=== PATIENT | male | born 1945 | race Caucasian/White ===

== ENCOUNTER → 2019-04-03 | Outpatient (CLI) | payer OTHER ==
[~2019-04-03] MED LIST: ASPIR 8181 MG PO; COZAAR 50 MG TA50 M2 PO; CRESTOR10 MG PO; FENOFIBRATE145 M1 PO; FLOMAX0.4 MG PO; LANTUS SOL100 UNIT/1 SUBQ; LEVOTHYROXIN0.112 M1 PO; LIPITOR; METOPROLOL SUCC50 MG PO; NOVOLOG FL100 UNIT/M SUBQ; PERCOCET 5-3251 EACH PO; PLAVIX 75 MG TA75 MG PO; TRICOR
== END ==
LOC: SJCVCIMAG 09:55 → SJCVC 16:05
DX: I65.23 Occlusion and stenosis of bilateral carotid arteries (principal); I25.10 Atherosclerotic heart disease of native coronary artery without angina pectoris; I42.9 Cardiomyopathy, unspecified; I25.810 Atherosclerosis of coronary artery bypass graft(s) without angina pectoris; E78.00 Pure hypercholesterolemia, unspecified; I10 Essential (primary) hypertension; E11.9 Type 2 diabetes mellitus without complications; I38 Endocarditis, valve unspecified; I35.0 Nonrheumatic aortic (valve) stenosis; Z79.4 Long term (current) use of insulin; Z86.79 Personal history of other diseases of the circulatory system; Z95.810 Presence of automatic (implantable) cardiac defibrillator; Z87.891 Personal history of nicotine dependence